=== PATIENT | female | born 1955 | race Caucasian/White ===

== ENCOUNTER 2017-06-19 15:10 | Inpatient (IN) ==
[2017-06-19] MEDS ORDERED: Acetaminophen 325 MG TABLET PO PRN (19:44)
[2017-06-19] MEDS ORDERED: Ketorolac 30 MG/ML VIAL IVP PRN (19:44)
[2017-06-19] MEDS ORDERED: Ondansetron 4 MG/2 ML VIAL IVP PRN (19:44)
[2017-06-19] MEDS ORDERED: Naloxone 0.4 MG/ML INJ IVP PRN (19:44)
[2017-06-19] MEDS ORDERED: 0.9 % Sodium Chloride 1,000 ML IVC SCH (19:45)
--- NOTE | 2017-06-19 19:50 | Internal Med History&Physical ---
Date of Encounter: 06/19/17 Time of Encounter: 19:47 Assessment and Plan (1) Tibia/fibula fracture Current visit: No Status: Acute Left lower extremity tibial-fibular oblique fractures Not able to bear weight Keep splint, use Toradol and morphine for pain Orthopedic surgery consult Nothing by mouth after midnight due to possible surgical procedure IV fluids Omeprazole for GI prophylaxis and subcutaneous heparin for DVT prophylaxis. The patient will be admitted for observation. Full code. Time spent on this admission 40 minutes Qualifiers: Encounter type: initial encounter Fracture type: closed Laterality: left Qualified Code(s): S82.202A - Unspecified fracture of shaft of left tibia, initial encounter for closed fracture; S82.402A - Unspecified fracture of shaft of left fibula, initial encounter for closed fracture; S82.402A - Unspecified fracture of shaft of left fibula, initial encounter for closed fracture (2) Hypothyroidism Current visit: Yes Status: Acute Continue Synthroid Qualifiers: Hypothyroidism type: unspecified Qualified Code(s): E03.9 - Hypothyroidism , unspecified (3) Vitamin D deficiency Current visit: Yes Status: Acute (4) Leukocytosis Current visit: Yes Status: Acute Qualifiers: Leukocytosis type: unspecified Qualified Code(s): D72.829 - Elevated white blood cell count, unspecified (5) Hypertension Current visit: Yes Status: Acute Accelerated hypertension likely secondary to pain Order hydralazine as needed and pain control Qualifiers: Hypertension type: essential hypertension Qualified Code(s): I10 - Essential (primary) hypertension Internal Medicine - H&P: HPI Chief complaint: Left lower extremity pain Admitted From: Emergency Dept History of present illness: Ms. Martinez is a 61 year old female with a past medical history of vitamin D deficiency, hypothyroidism who came to the emergency room complaining left lower extremity pain after she slipped on ice and fell. X-ray showed an oblique fracture of the proximal fibular diaphysis, a distal fibular and tibial diaphyses as well. Orthopedic surgery has been consulted per ER. White blood cell count is 14 glucose 103 blood pressure 159/80. Patient says that the pain is a 7 out of 10, lower extremity appears swollen and wonders the deformity evidenced. She is neurovascular intact. Splint was placed in the left lower extremity. Past Med Surg Social Fam HX - Past Medical History Medical history: cancer (Left breast cancer status post radiation and lumpectomy ), thyroid disease (Hypothyroidism), other (Vitamin D deficiency, hypertension, sinusitis, hyperlipidemia) Psychiatric history: no psych history - Past Surgical History Surgical History: hysterectomy, other (Bladder suspension, breast surgery) - Social History Smoking Status: Never smoker Smokeless Tobacco Status: No Alcohol use: none Drug use: none - Additional Family History Additional family history: Mother with diabetes Internal Medicine - H&P: Meds Levothyroxine [Synthroid] 75 mcg PO DAILY 06/07/17 [History] 3 Allergy/AdvReac Type Severity Reaction Status Date / Time levofloxacin [From Levaquin] Allergy Hives Verified 06/19/17 12:33 All Systems PM: A 10-system review of systems was performed and is negative for pertinent findings except as documented above in the HPI. Review of systems: No chest pain shortness of breath, other systems out of the 10 review were negative, the patient did not feel dizzy or fainted - Constitutional Vitals: Temp Pulse Resp BP Pulse Ox 98.2 F 79 16 159/80 96 06/19/17 18:58 06/19/17 18:58 06/19/17 18:58 06/19/17 18:58 06/19/17 18:58 General appearance: Present: A&O X 3 - Head Head exam: Present: atraumatic, normocephalic - Eye Eye exam: Present: PERRL, conjuntiva pink, sclera anicteric Pupils: Present: PERRL - Neck Neck exam general surgery: Present: supple, trachea midline. Absent: lymphadenopathy - Respiratory Respiratory exam: Present: CTAB. Absent: accessory muscle use, rales, rhonchi, wheezes - Cardiovascular Cardiovascular exam: Present: RRR, +S1, +S2. Absent: diastolic murmur, gallop, rubs, systolic murmur - GI/Abdominal GI/Abdominal exam: Present: normal bowel sounds, soft, no peritoneal signs. Absent: distended, tenderness - Extremities Exam Extremities exam: Present: warm, radial pulses palpable and symmetrical. Absent : calf tenderness, cyanotic, pedal edema - Neurological Exam Neurological exam: Present: CN II-XII intact, oriented X3, no focal deficits. Absent: pronater drift, facial droop, speech deficit Additional comments: Left lower extremity splint in place, upper deformity evidence in the upper third of the lateral left lower extremity - Skin Skin exam: Present: dry, intact
[2017-06-19] MEDS: *HR* Morphine 2 MG/ML SYRINGE IVP PRN (20:10)
--- NOTE | 2017-06-19 20:42 | Orthopedic Consult Note ---
Date of Encounter: 06/19/17 Time of Encounter: 20:36 History of Present Illness Chief complaint: Left lower leg pain HPI: Ms. Martinez is a 61 year old female who sustained injury to her left lower extremity when she slipped on some ice outside of her home earlier today. The patient was unable to ambulate and noted deformity. She presented initially to the [facility] emergency room where x-rays taken revealed evidence of a left tibia and fibula fracture. She was transferred to [facility] for definitive orthopedic management. She denies any other injuries. Denies dizziness striking her head etc. Denies neurovascular complaints. History of physical examination was reviewed. Please see the completed portion of the medical record. Pertinent orthopedic examination this time reveals a left lower extremity in a posterior and sugar tong type splint. Neurosensory exam is intact. I reviewed x-rays of the left ankle, left tibia-fibula and left knee. These reveal a oblique type fracture of the distal third of the left tibia with an associated fibular fracture just below the level of the tibia fracture and this is associated with a specimens nondisplaced fracture of the proximal fibular metadiaphyseal region. Impression: Distal third fracture left tibia and fibula with proximal fibular fracture Recommendation: Discussed treatment options at length with the patient and family regarding this fracture. We discussed nonoperative management with the inherent risk of significant shortening or fracture malunion. This would also preclude weightbearing for an extended period of time. Surgical options would include open reduction internal fixation as well as intramedullary nailing. I recommend that we proceed with intramedullary nailing assist would be a less invasive surgical procedure and would allow her to begin weightbearing sooner. We discussed potential risks and complications including but not limited to bleeding infection blood clots nerve injury stiffness malunion nonunion as well as rotational or leg length deformities. Patient understands and agrees and is requested to proceed with surgery. She has signed informed consent for the surgical procedure. We will proceed with surgery tomorrow when operating time is available. Thank you very much for allowing me to see care form Mrs. Martinez. Sincerely, Nile Thacker,DO Past Med Surg Social Fam HX - Past Medical History Medical history: cancer (Left breast cancer status post radiation and lumpectomy ), thyroid disease (Hypothyroidism), other (Vitamin D deficiency, hypertension, sinusitis, hyperlipidemia) Psychiatric history: no psych history - Past Surgical History Surgical History: hysterectomy, other (Bladder suspension, breast surgery) - Social History Smoking Status: Never smoker Smokeless Tobacco Status: No Alcohol use: none Drug use: none - Family History Mother Living Status: Age at : 80 Cause of : pneumonia Father History Unknown: Yes Living Status: Medications and Allergies Levothyroxine [Synthroid] 75 mcg PO DAILY 06/07/17 [History] 3 Allergy/AdvReac Type Severity Reaction Status Date / Time levofloxacin [From Levaquin] Allergy Hives Verified 06/19/17 12:33 All Systems Reviewed: A 10-system review of systems was performed and is negative for pertinent findings except as documented above in the HPI. Physical Exam - Constitutional Vitals: Temp Pulse Resp BP Pulse Ox 98.2 F 79 16 159/80 96 06/19/17 18:58 06/19/17 18:58 06/19/17 18:58 06/19/17 18:58 06/19/17 18:58 Results - Labs Labs: All other labs normal. - Diagnostic results Knee x-ray: image reviewed Ankle/Foot x-ray: image reviewed (Tibia and fibula x-rays reviewed) Consult Discharge Plan - Plan Referrals: Liliane Contreras, [employer] [Primary Care Provider] -
[2017-06-20] MEDS: *HR* Morphine 2 MG/ML SYRINGE IVP PRN ×3 (00:14→18:39)
[2017-06-20 05:46] LABS: Basophils # 0.1 K/mcL (0.0-0.2); Basophils % 0.5 %; Eosinophils # 0.2 K/mcL (0.0-0.6); Eosinophils % 1.7 %; Hematocrit 36.3 % (35.3-44.9); Hemoglobin 11.6 g/dL (11.5-15.4); Immature Granulocytes % 0.3 % (0-4); Lymphocytes # 1.8 K/mcL (0.6-4.6); Lymphocytes % 19.5 %; Mean Corpuscular Hemoglobin 26.2 pg (28.0-33.3); Mean Corpuscular Volume 82.1 fL (83.0-100.0); Mean Platelet Volume 9.2 fL (9.4-12.4); Monocytes % 11.1 %; Neutrophils # 6.1 K/mcL (1.6-8.9); Platelet Count 344 K/mcL (140-400); Red Blood Count 4.42 M/mcL (3.82-4.97); Segmented Neutrophils % 66.9 %
[2017-06-20] MEDS ORDERED: *HR* Heparin 5,000 UNIT/ML VIAL SQ SCH (06:00)
[2017-06-20 06:04] LABS: BUN/Creatinine Ratio 24 (6-26); Blood Urea Nitrogen 14 mg/dL (8-23); Calcium 8.5 mg/dL (8.6-10.3); Carbon Dioxide 26 mEq/L (23-29); Chloride 108 mEq/L (98-107); Glucose 103 mg/dL (70-105); Osmolality,Calculated 289 (280-300); Potassium 3.8 mEq/L (3.5-5.1); Sodium 139 mEq/L (136-145); eGFR For African Americans > 60 (> 60); eGFR For Non-African Americans > 60 (> 60)
[2017-06-20] MEDS ORDERED: Ondansetron 4 MG/2 ML VIAL ONE (06:50)
[2017-06-20] MEDS ORDERED: Lidocaine -MPF 2% 2 ML VIAL ONE (06:50)
[2017-06-20] MEDS ORDERED: Dexamethasone 4 MG/ML VIAL ONE (06:50)
[2017-06-20] MEDS ORDERED: *HR* Succinylcholine 200 MG/10 ML VIAL IVP ONE (06:50)
[2017-06-20] MEDS ORDERED: *HR* HYDROmorphone 2 MG/ML SYRINGE ONE (06:51)
[2017-06-20] MEDS ORDERED: *HR* FentaNYL (PF) 100 MCG/2 ML VIAL ONE (06:51)
[2017-06-20] MEDS ORDERED: *HR* Midazolam HCl 2 MG/2 ML VIAL ONE (06:51)
[2017-06-20] MEDS ORDERED: *HR* Propofol 200 MG/20 ML VIAL IVP ONE (06:51)
--- NOTE | 2017-06-20 07:15 | Anesthesia Evaluation PreOp ---
Date of Encounter: 06/20/17 Time of Encounter: 07:30 - Past History Planned Operation: ORIF tibial fracture Cardiac History: Denies any Significant Hx, HTN (hypertension with pain of current injury) Pulmonary History: Denies Any Significant HX MEDICAL DEVICE SALES History: Denies Any Significant HX Other Medical History: Thyroid Anesthesia History: No Prior Anesthetic Complications, Past Anesthesia Alcohol Use: none Drug use: none Medications and Allergies Levothyroxine [Synthroid] 75 mcg PO DAILY 06/07/17 [History] 3 Allergy/AdvReac Type Severity Reaction Status Date / Time levofloxacin [From Levaquin] Allergy Hives Verified 06/19/17 12:33 - Meds/Allergy Pre-op Review Medications Reviewed: Yes Allergies Reviewed: Yes Beta Blockers on Current Med List: No Anesthesia Results - Labs 06/20/17 05:24 06/20/17 05:24 - Imaging EKG: report reviewed Anesthesia Exam Selected Entries 06/20/17 06:54 Temperature 98.1 F Pulse Rate 77 Respiratory Rate 14 Blood Pressure 145/69 O2 Sat by Pulse Oximetry 96 NPO (# of Hours): over 12 hours - HEENT Pupil (Motor): Pupils equal Mallampati: II Teeth: Normal Oral Opening: Greater than 3 - Cardiac Rhythm: Regular Murmur: None - Pulmonary Breath Sounds: bilateral Clear Respiratory Effort: Symmetrical Anesthesia Assess/Plan ASA Score: 2 Modified Boykins Scale for Level of Consciousness: Cooperative, oriented, and tranquil Anesthetic Plan: General Monitoring Plan: Standard Monitors Recovery Plan: PACU
[2017-06-20] MEDS ORDERED: *HR* Labetalol 20 MG/4 ML SYRINGE IVP PRN ×2 (07:16→10:53)
[2017-06-20] MEDS ORDERED: *HR* HYDROmorphone (PF) 1 MG/ML SYRINGE IVP PRN ×2 (07:16→10:53)
[2017-06-20] MEDS ORDERED: CeFAZolin Syr 2,000MG/20 ML 2,000 MG/20 ML SYRINGE IVPB ONE (07:45)
[2017-06-20] MEDS ORDERED: EPHEDrine 50 MG/ML VIAL ONE (08:38)
--- NOTE | 2017-06-20 10:33 | Operative Note ---
Date of procedure: 06/20/17 Pre-op diagnosis: #1. Fracture distal third left tibia #2. Segmental fracture left fibula Post-op diagnosis: same Procedure: #1. Intramedullary nailing left tibia #2. Fluoroscopic guidance for IM nailing left tibia Implants: Synthes 9 mm x 300 mm tibial nail with a 5 mm and and one proximal and one distal 4.0 mm locking screw Complications: None Anesthesia: GETA Surgeon: Nile Thacker Was there an clinic office assistant present: No Estimated blood loss (cc): 5 Tourniquet Time (Minutes): 70 Specimen: None Condition: stable Disposition: PACU Procedure in Detail: Gross findings: Preoperative examination revealed ecchymosis about the distal third of the left leg. This is associated with a large fracture bleb above the medial malleolus. This was intact. Preoperative x-rays revealed a oblique fracture of the distal third of the tibia with an associated fracture of the fibula just distal to the tibia fracture as well as a fracture through the fibular neck proximally. The fracture was able to be reduced and stabilized with a intramedullary nail placed and an antegrade position. This was locked both proximal and distal maintaining excellent fracture approximation. Fibular fracture remained in excellent position as well. Procedure: Patient was taken to the operating room and transferred from the hospital bed to the operating table. Patient was now administered general anesthesia. Once adequate level of anesthesia had been obtained the left lower extremity was prepped and draped in normal standard fashion with a tourniquet placed high about the upper thigh. Leg was now exsanguinated utilizing Esmarch and the tourniquet was inflated. Incision was created from the proximal tibia to the inferior pole the patella. Dissection was carried through subtendinous tissues down the level of the medial retinaculum which was opened immediately adjacent to the patella tendon. The extra-articular surface of the tibia was exposed. Entrance was made with the awl. Ball tip guide ragini was then placed through the entrance hole and passed down the tibia. Fracture was aligned manually and the guidewire was passed across the fracture site into the distal tibia. Length of the nail was measured and a 300 mm was selected. The tibia was reamed up to including a 10 mm reamer. The selected nail was then placed on the insertion jig passed over the guidewire and impacted down the tibia seating it below the level of the tibial surface and placing it in the very distal tibia. Alignment of the fracture was noted to be well maintained during the nail placement. Guidewire was removed. Utilizing the proximal insertion jig a single oblique medial screw was placed through the nail into the tibia. The insertion jig was now removed. Utilizing perfect circles technique a single distal locking screw was placed from the medial to lateral direction. Multipanar fluoroscopy was used to verify implant and fracture position. With implants in place now attention was paid to closure. Wound was copiously irrigated with saline solution. Medial retinaculum was closed with #1 Vicryl. Deep subtendinous tissue was closed with several #1 Vicryl. Medius subtendinous tissue were closed with multiple 2-0 undyed Vicryl patient in inverted interrupted position. Skin edges of the incision and the Wounds for the locking screws were closed with stainless steel clips. Sterile dressings consisting of bacitracin Telfa 4 x 4's sterile cast padding Darius wrap Schnapp applied and secured. Tourniquet was now deflated. Patient was then transferred from the operating room to the postanesthesia care unit in stable and satisfactory condition. All sponge and needle and instrument counts are correct. No specimens were sent for pathology.
[2017-06-20] MEDS ORDERED: Ondansetron 4 MG/2 ML VIAL IVP PRN (10:53)
[2017-06-20] MEDS ORDERED: Naloxone 0.4 MG/ML INJ IVP PRN (10:53)
[2017-06-20] MEDS ORDERED: Acetaminophen 325 MG TABLET PO PRN (10:53)
[2017-06-20] MEDS ORDERED: 0.9 % Sodium Chloride 1,000 ML IVC SCH (10:53)
[2017-06-20] MEDS: *HR* OxyCODONE Immed Rel 5 MG TABLET PO PRN (11:22)
--- NOTE | 2017-06-20 12:05 | Internal Med Progress Note ---
<Nile Santiago - Last Filed: 06/20/17 12:02> Date of Encounter: 06/20/17 Time of Encounter: 11:45 - Assessment and plan (1) Tibia/fibula fracture Current Visit: No Status: Acute Assessment and plan: Left lower extremity tibial-fibular oblique fractures Not able to bear weight Underwent surgery this morning for repair of fracture Patient back in room and comfortable at this time Tylenol, Toradol, morphine, Dilaudid or oxycodone for patient pain IV fluids to be discontinued after 2 bags Omeprazole for GI prophylaxis Subcutaneous heparin for DVT prophylaxis Qualifiers: Encounter type: initial encounter Fracture type: closed Laterality: left Qualified Code(s): S82.202A - Unspecified fracture of shaft of left tibia, initial encounter for closed fracture; S82.402A - Unspecified fracture of shaft of left fibula, initial encounter for closed fracture; S82.402A - Unspecified fracture of shaft of left fibula, initial encounter for closed fracture (2) Vitamin D deficiency Current Visit: Yes Status: Acute Assessment and plan: History of vitamin D deficiency, possibly contributory to patient tib/fib fracture (3) Hypothyroidism Current Visit: Yes Status: Acute Assessment and plan: Continue home dose Synthroid Qualifiers: Hypothyroidism type: unspecified Qualified Code(s): E03.9 - Hypothyroidism , unspecified (4) Leukocytosis Current Visit: Yes Status: Resolved Assessment and plan: Likely reactive from acute fracture No resolved We will recheck in morning Qualifiers: Leukocytosis type: unspecified Qualified Code(s): D72.829 - Elevated white blood cell count, unspecified (5) Hypertension Current Visit: Yes Status: Acute Assessment and plan: Accelerated hypertension at presentation likely secondary to pain Current blood pressure controlled Order hydralazine as needed and pain control Qualifiers: Hypertension type: essential hypertension Qualified Code(s): I10 - Essential (primary) hypertension - Subjective Interval history: Patient seen and examined at bedside this morning following her orthopedic surgery this morning for repair of her left lower extremity. Patient awake and doing well. She reports only having mild achiness in her leg but is otherwise well. - Constitutional Vitals: Temp Pulse Resp BP Pulse Ox 97.2 F L 79 16 129/69 99 06/20/17 11:50 06/20/17 11:50 06/20/17 11:50 06/20/17 11:50 06/20/17 11:50 General appearance: Present: A&O X 3 Exam: General: Cooperative, pleasant, no acute distress, alert and oriented 3, answers questions appropriately HEENT: Normocephalic, atraumatic, sclera anicteric, oral mucosa moist Respiratory: No accessory muscle usage, clear to auscultation bilaterally, no wheezes/rhonchi/rales appreciated Cardiovascular: Regular rate and rhythm, S1 and S2 present, no murmurs/rubs/ gallops/clicks appreciated GI/abdominal: Nondistended, nontender, soft, normal bowel sounds, no peritoneal signs Extremities: Patient neurovascularly intact in bilateral lower extremities, dressings in place on left lower extremity from orthopedic surgery this morning , slight amount of swelling present in left lower extremity Neurological: Alert and oriented 3, no facial droop, no focal deficits Internal Medicine: Result - Labs CBC & Chem 7: 06/20/17 05:24 06/20/17 05:24 Labs: Short CBC 06/20/17 Range/Units 05:24 WBC 9.2 (4.3-11.1) K/mcL Hgb 11.6 (11.5-15.4) g/dL Hct 36.3 (35.3-44.9) % Plt Count 344 (140-400) K/mcL Neutrophils # 6.1 (1.6-8.9) K/mcL BMP 06/20/17 05:24 Sodium 139 Potassium 3.8 Chloride 108 H Carbon Dioxide 26 BUN 14 Creatinine 0.58 L Glucose 103 Calcium 8.5 L - Impressions Impressions Tibia/Fibula X-Ray 06/20/17 08:45 IMPRESSION: 1. See above. D/ / Abdelrahman Hanna MD / Abdelrahman Hanna MD Interpreting Provider: Abdelrahman Hanna MD - VTE Documentation of Mechanical Device: Venous foot pump, device Consult Discharge Plan - Plan Referrals: Liliane Contreras, [employer] [Primary Care Provider] - <Jeffery Quick - Last Filed: 06/20/17 17:56> Date of Encounter: 06/20/17 - Assessment and plan (1) Tibia/fibula fracture Current Visit: No Status: Acute Qualifiers: Encounter type: initial encounter Fracture type: closed Laterality: left Qualified Code(s): S82.202A - Unspecified fracture of shaft of left tibia, initial encounter for closed fracture; S82.402A - Unspecified fracture of shaft of left fibula, initial encounter for closed fracture; S82.402A - Unspecified fracture of shaft of left fibula, initial encounter for closed fracture (2) Hypertension Current Visit: Yes Status: Acute Qualifiers: Hypertension type: essential hypertension Qualified Code(s): I10 - Essential (primary) hypertension (3) Hypothyroidism Current Visit: Yes Status: Acute Qualifiers: Hypothyroidism type: acquired Qualified Code(s): E03.9 - Hypothyroidism, unspecified (4) Vitamin D deficiency Current Visit: Yes Status: Acute - Constitutional Vitals: Temp Pulse Resp BP Pulse Ox 97.6 F 86 14 133/69 95 06/20/17 14:29 06/20/17 14:29 06/20/17 14:29 06/20/17 14:29 06/20/17 14:29 Internal Medicine: Result - Labs CBC & Chem 7: 06/20/17 05:24 06/20/17 05:24 Labs: Short CBC 06/20/17 Range/Units 05:24 WBC 9.2 (4.3-11.1) K/mcL Hgb 11.6 (11.5-15.4) g/dL Hct 36.3 (35.3-44.9) % Plt Count 344 (140-400) K/mcL Neutrophils # 6.1 (1.6-8.9) K/mcL BMP 06/20/17 05:24 Sodium 139 Potassium 3.8 Chloride 108 H Carbon Dioxide 26 BUN 14 Creatinine 0.58 L Glucose 103 Calcium 8.5 L - Impressions Impressions Tibia/Fibula X-Ray 06/20/17 08:45 IMPRESSION: 1. See above. D/ / Abdelrahman Hanna MD / Abdelrahman Hanna MD Interpreting Provider: Abdelrahman Hanna MD - Attending Attestation I examined this patient and my medical decision-making was reviewed with the Resident Physician on 06/20/17. I agree with the documented findings, disposition and treatment plan as described except to the extent set forth below. Ms Martinez is currently admitted for acute L tib/fib fracture. She is s/p ORIF. She remains moderate to high risk due to potential for worsening clinical status. Ms Martinez just returned from surgery. Her pain is controlled at this time. No fever or chills. No nausea. Exam Alert. Comfortable Mucus membranes dry Heart reg No wheeze I/P 1. Fracture L tib/fib s/p ORIF Further diagnoses and plan as above.
[2017-06-20] MEDS: Ketorolac 30 MG/ML VIAL IVP PRN ×2 (13:13→21:23)
[2017-06-20] MEDS: ceFAZolin 2,000 MG in Water for inj. (sterile) 20 ML IVP SCH (16:05)
--- NOTE | 2017-06-20 18:08 | Anesthesia Evaluation Post Op ---
Date of Encounter: 06/20/17 Time of Encounter: 10:00 - Vital Signs Vital Signs: VSS - Lungs Lungs: Clear Ascult./Percussion - Airway Airway: Non-obstructed - Cardiovascular Regular Rate - Mental Status Mental Status: Alert & Oriented, Answers Appropriately - Nausea Vomiting Nausea Vomiting: Not Present - Hydration Hydration: NPO - Discharge PostOp Status: Transfer Patient to floor
[2017-06-21] MEDS: ceFAZolin 2,000 MG in Water for inj. (sterile) 20 ML IVP SCH (00:48)
[2017-06-21] MEDS: *HR* Morphine 2 MG/ML SYRINGE IVP PRN (00:49)
[2017-06-21 03:13] LABS: Basophils % 0.3 %; Eosinophils # 0.1 K/mcL (0.0-0.6); Eosinophils % 0.8 %; Hematocrit 30.9 % (35.3-44.9); Immature Granulocytes % 0.6 % (0-4); Lymphocytes % 16.2 %; Mean Corpuscular HGB Conc 31.1 g/dL (31.6-35.5); Mean Corpuscular Hemoglobin 25.7 pg (28.0-33.3); Mean Corpuscular Volume 82.6 fL (83.0-100.0); Mean Platelet Volume 9.1 fL (9.4-12.4); Monocytes # 1.1 K/mcL (0.0-1.3); Monocytes % 9.5 %; Neutrophils # 8.7 K/mcL (1.6-8.9); Platelet Count 301 K/mcL (140-400); Red Blood Count 3.74 M/mcL (3.82-4.97); Red Cell Distribution Width 12.9 % (11.5-14.5); Segmented Neutrophils % 72.6 %
[2017-06-21 03:17] LABS: Hemoglobin 9.6 g/dL (11.5-15.4)
[2017-06-21] MEDS: *HR* Enoxaparin 30 MG/0.3 ML SYRINGE SQ SCH ×2 (06:34→16:36)
[2017-06-21] MEDS: Ketorolac 30 MG/ML VIAL IVP PRN (06:34)
--- NOTE | 2017-06-21 14:08 | Internal Med Progress Note ---
<Mike Benoit - Last Filed: 06/21/17 14:50> Date of Encounter: 06/21/17 Time of Encounter: 14:05 - Assessment and plan (1) Tibia/fibula fracture Current Visit: Yes Status: Acute Assessment and plan: Left lower extremity tibial-fibular oblique fractures POD 1 Intramedullary nailing left tibia and internal fixation PT recommends one more day of therapy pain under control tolerating diet reports not having BM in past 2 days Tylenol, Toradol, morphine, Dilaudid or oxycodone for pain control Omeprazole for GI prophylaxis conitnue regular diet. start daily colace. Qualifiers: Encounter type: initial encounter Fracture type: closed Laterality: left Qualified Code(s): S82.202A - Unspecified fracture of shaft of left tibia, initial encounter for closed fracture; S82.402D - Unspecified fracture of shaft of left fibula, subsequent encounter for closed fracture with routine healing; S82.402D - Unspecified fracture of shaft of left fibula, subsequent encounter for closed fracture with routine healing (2) Hypertension Current Visit: Yes Status: Acute Assessment and plan: controlled. before patient had fracture of left tib/fib she went to ER (jun 07) for elevated BP reviewing EMR of ER visit shows BP in 170s-150s systolics. patient was started on lisinopril 10mg outpatient will continue lisinopril Qualifiers: Hypertension type: essential hypertension Qualified Code(s): I10 - Essential (primary) hypertension (3) Hypothyroidism Current Visit: Yes Status: Acute Assessment and plan: Continue home dose Synthroid Qualifiers: Hypothyroidism type: acquired Qualified Code(s): E03.9 - Hypothyroidism, unspecified (4) Vitamin D deficiency Current Visit: Yes Status: Acute Assessment and plan: History of vitamin D deficiency possibly contributory to patient tib/fib fracture DEXA scan in 2010 WNL Will need to repeat DEXA scan outpatient recheck Vit D levels. (5) Leukocytosis Current Visit: Yes Status: Resolved Assessment and plan: 2nd to surgery will continue to monitor afebrile no signs of infection on exam. Qualifiers: Leukocytosis type: unspecified Qualified Code(s): D72.829 - Elevated white blood cell count, unspecified (6) Anemia Current Visit: Yes Status: Acute Assessment and plan: presented with hgb of 12.6 today hgb 9.6 s/p ortho procedure cbc AM hemodynamically stable. Qualifiers: Anemia type: unspecified type Qualified Code(s): D64.9 - Anemia, unspecified - Subjective Interval history: POD 1 Intramedullary nailing left tibia. Reports pain is under control. Denies chest pain, sob, abdominal pain. Reports passing gas but has no had BM. PT recommends one additional discharge. - Constitutional Vitals: Temp Pulse Resp BP Pulse Ox 98.3 F 82 14 130/68 99 06/21/17 10:35 06/21/17 10:35 06/21/17 10:35 06/21/17 10:35 06/21/17 10:35 General appearance: Present: A&O X 3 - Other Additional findings: General: Pleasant without distressanes, Heart: Regular rate and rhythm with no murmur Lungs:bilateral lower lobe wheezing Abdomen: Soft nontender, nondistended positive bowel sounds Skin: warm and dry Extremities: Absent pedal edema, left lower extremity bandage. Neusensation intact in bilateral lower extremities Vascular: Pedal and radial pulses 2 out of 4 Internal Medicine: Result - Labs CBC & Chem 7: 06/21/17 02:53 06/20/17 05:24 Labs: Short CBC 06/21/17 Range/Units 02:53 WBC 12.0 H (4.3-11.1) K/mcL Hgb 9.6 L D (11.5-15.4) g/dL Hct 30.9 L (35.3-44.9) % Plt Count 301 (140-400) K/mcL Neutrophils # 8.7 (1.6-8.9) K/mcL - VTE Documentation of Mechanical Device: Venous foot pump, device Consult Discharge Plan - Plan Referrals: Liliane Contreras, ELECTRIC CUTTER OPERATOR [Primary Care Provider] - <Jeffery Quick - Last Filed: 06/21/17 19:20> Date of Encounter: 06/21/17 - Assessment and plan (1) Tibia/fibula fracture Current Visit: Yes Status: Acute Qualifiers: Encounter type: subsequent encounter Fracture type: closed Laterality: left Qualified Code(s): S82.202D - Unspecified fracture of shaft of left tibia , subsequent encounter for closed fracture with routine healing; S82.402D - Unspecified fracture of shaft of left fibula, subsequent encounter for closed fracture with routine healing; S82.402D - Unspecified fracture of shaft of left fibula, subsequent encounter for closed fracture with routine healing (2) Hypertension Current Visit: Yes Status: Acute Qualifiers: Hypertension type: essential hypertension Qualified Code(s): I10 - Essential (primary) hypertension (3) Hypothyroidism Current Visit: Yes Status: Acute Qualifiers: Hypothyroidism type: acquired Qualified Code(s): E03.9 - Hypothyroidism, unspecified (4) Vitamin D deficiency Current Visit: Yes Status: Acute - Constitutional Vitals: Temp Pulse Resp BP Pulse Ox 98.8 F 93 14 141/70 95 06/21/17 17:37 06/21/17 16:07 06/21/17 16:07 06/21/17 16:07 06/21/17 16:07 Internal Medicine: Result - Labs CBC & Chem 7: 06/21/17 02:53 06/20/17 05:24 Labs: Short CBC 06/21/17 Range/Units 02:53 WBC 12.0 H (4.3-11.1) K/mcL Hgb 9.6 L D (11.5-15.4) g/dL Hct 30.9 L (35.3-44.9) % Plt Count 301 (140-400) K/mcL Neutrophils # 8.7 (1.6-8.9) K/mcL - Attending Attestation I examined this patient and my medical decision-making was reviewed with the Resident Physician on 06/21/17. I agree with the documented findings, disposition and treatment plan as described except to the extent set forth below. Ms Martinez is currently admitted for acute tib/fib fracture. She is s/p ORIF. She remains moderate risk due to potential for worsening clinical status. Ms Martinez feels OK. Pain is controlled. Had therapy today. She had a low grade fever - doing IS. Exam Alert Comfortable Mucus membranes dry Heart not tachy Lungs no wheeze I/P 2. L tib/fib fracture 2. HTN Further diagnoses and plan as above.
[2017-06-21] MEDS: *HR* OxyCODONE Immed Rel 5 MG TABLET PO PRN ×2 (15:28→22:37)
--- NOTE | 2017-06-21 21:13 | Orthopedics Progress Note ---
Date of Encounter: 06/21/17 Time of Encounter: 21:10 Subjective Principal diagnosis: Left tibia and fibular fractures Interval history: 06/21/2017. Patient is postop day #1 IM nailing left tibia fracture. Patient is doing quite well. Pain is well controlled. Patient is complaining of a burning sensation in the infrapatellar incision area. Denies neurovascular complaints. Signs are stable. Patient is afebrile. Hemoglobin is 9.6. Platelet count normal. Dressings are dry. Neurovascular exam is intact. Impression: POD #1 IM nailing left tibia Recommendation: Orthopedic status is stable. Continue with ambulation training , maintaining touchdown weightbearing only on the left lower extremity. Patient can actively move the knee and ankle. Can remove dressings in 48 hours and then start local wound care with peroxide and Neosporin and a dressing as needed. Patient will need follow-up with me in about 2 weeks' time. Would also recommend use of aspirin twice a day for DVT prophylaxis. Objective Vital signs: Vital Signs Temp Pulse Resp BP Pulse Ox 06/21/17 20:43 98.3 F 83 18 117/53 97 06/21/17 17:37 98.8 F 06/21/17 16:07 100.2 F H 93 14 141/70 95 06/21/17 10:35 98.3 F 82 14 130/68 99 06/21/17 07:36 98.2 F 77 15 131/61 96 06/21/17 04:35 98.3 F 76 16 138/68 94 06/21/17 00:22 98.2 F 77 16 144/71 93 Intake and Output 06/21/17 06/21/17 06/21/17 07:59 15:59 23:59 Intake Total 480 / 480 240 / 240 Output Total 200 / 200 300 / 300 Balance -200 / -200 180 / 180 240 / 240 Intake: Oral 480 / 480 240 / 240 Output: Urine 200 / 200 300 / 300 Other: Meal Lunch Dinner Percent of Meal Consumed 80% 70% Stool Size Moderate # Voids 1 2 # Bowel Movements 1 - Labs CBC & BMP: 06/21/17 02:53 06/20/17 05:24 Labs: Abnormal lab results WBC 12.0 K/mcL (4.3-11.1) H 06/21/17 02:53 RBC 3.74 M/mcL (3.82-4.97) L 06/21/17 02:53 Hgb 9.6 g/dL (11.5-15.4) L D 06/21/17 02:53 Hct 30.9 % (35.3-44.9) L 06/21/17 02:53 MCV 82.6 fL (83.0-100.0) L 06/21/17 02:53 MCH 25.7 pg (28.0-33.3) L 06/21/17 02:53 MCHC 31.1 g/dL (31.6-35.5) L 06/21/17 02:53 MPV 9.1 fL (9.4-12.4) L 06/21/17 02:53 Chloride 108 mEq/L (98-107) H 06/20/17 05:24 Creatinine 0.58 mg/dL (0.60-1.20) L 06/20/17 05:24 Calcium 8.5 mg/dL (8.6-10.3) L 06/20/17 05:24 - VTE Documentation of Mechanical Device: Venous foot pump, device Consult Discharge Plan - Plan Referrals: Liliane Contreras, SCHEDULING REPRESENTATIVE [Primary Care Provider] -
[2017-06-22] MEDS: *HR* Enoxaparin 30 MG/0.3 ML SYRINGE SQ SCH ×2 (05:25→16:41)
[2017-06-22] MEDS: *HR* OxyCODONE Immed Rel 5 MG TABLET PO PRN ×2 (05:25→23:10)
[2017-06-22 07:27] LABS: Basophils # 0.1 K/mcL (0.0-0.2); Basophils % 0.4 %; Eosinophils # 0.3 K/mcL (0.0-0.6); Hematocrit 32.1 % (35.3-44.9); Immature Granulocytes % 0.6 % (0-4); Lymphocytes % 15.4 %; Mean Corpuscular HGB Conc 31.2 g/dL (31.6-35.5); Mean Corpuscular Hemoglobin 25.4 pg (28.0-33.3); Mean Corpuscular Volume 81.7 fL (83.0-100.0); Mean Platelet Volume 9.4 fL (9.4-12.4); Monocytes # 1.2 K/mcL (0.0-1.3); Neutrophils # 9.3 K/mcL (1.6-8.9); Platelet Count 322 K/mcL (140-400); Red Blood Count 3.93 M/mcL (3.82-4.97); Red Cell Distribution Width 13.1 % (11.5-14.5); Segmented Neutrophils % 72.6 %
[2017-06-22 07:40] LABS: BUN/Creatinine Ratio 19 (6-26); Blood Urea Nitrogen 10 mg/dL (8-23); Calcium 8.3 mg/dL (8.6-10.3); Carbon Dioxide 26 mEq/L (23-29); Chloride 105 mEq/L (98-107); Glucose 103 mg/dL (70-105); Osmolality,Calculated 283 (280-300); Potassium 3.8 mEq/L (3.5-5.1); Sodium 137 mEq/L (136-145); eGFR For African Americans > 60 (> 60); eGFR For Non-African Americans > 60 (> 60)
[2017-06-22 13:23] LABS: Bilirubin,Urine Negative (Negative); Blood,Urine Negative (Negative); Clarity,Urine Clear (Clear); Color,Urine Yellow (Yellow); Glucose,Urine (UA) Normal (Normal); Ketones,Urine Negative (Negative); Leukocyte Esterase,Urine Negative (Negative); Nitrite,Urine Negative (Negative); Protein,Urine Negative (Neg-Trace); Specific Gravity,Urine 1.006 (1.010-1.025); Urobilinogen,Urine Normal (Normal)
--- NOTE | 2017-06-22 16:55 | Internal Med Progress Note ---
Date of Encounter: 06/22/17 Time of Encounter: 16:53 - Assessment and plan (1) Tibia/fibula fracture Current Visit: Yes Status: Acute Assessment and plan: Left lower extremity tibial-fibular oblique fractures POD 2 Intramedullary nailing left tibia and internal fixation pain under control tolerating diet Tylenol, Toradol, morphine, Dilaudid or oxycodone for pain control Omeprazole for GI prophylaxis Will place her on Lovenox for DVT prophylaxis Qualifiers: Encounter type: subsequent encounter Fracture type: closed Laterality: left Qualified Code(s): S82.202D - Unspecified fracture of shaft of left tibia , subsequent encounter for closed fracture with routine healing; S82.402D - Unspecified fracture of shaft of left fibula, subsequent encounter for closed fracture with routine healing; S82.402D - Unspecified fracture of shaft of left fibula, subsequent encounter for closed fracture with routine healing (2) Fever Current Visit: Yes Status: Acute Assessment and plan: Unclear etiology reviewed CXR by myself.. no source of inf Reviewed UA - benign however with her elevated WBC and low grade fever spikes will start her on empirical abx Rocephin will change her dressing in AM as per Ortho recommendations Qualifiers: Fever type: unspecified Qualified Code(s): R50.9 - Fever, unspecified (3) Hypertension Current Visit: Yes Status: Acute Assessment and plan: controlled will continue lisinopril Qualifiers: Hypertension type: essential hypertension Qualified Code(s): I10 - Essential (primary) hypertension (4) Hypothyroidism Current Visit: Yes Status: Acute Assessment and plan: Continue home dose Synthroid Qualifiers: Hypothyroidism type: acquired Qualified Code(s): E03.9 - Hypothyroidism, unspecified (5) Vitamin D deficiency Current Visit: Yes Status: Acute Assessment and plan: History of vitamin D deficiency possibly contributory to patient tib/fib fracture DEXA scan in 2010 WNL Will need to repeat DEXA scan outpatient - Subjective Interval history: Ms. Martinez is a 61 year old female with a past medical history of vitamin D deficiency, hypothyroidism who came to the emergency room complaining left lower extremity pain after she slipped on ice and fell. X-ray showed an oblique fracture of the proximal fibular diaphysis, a distal fibular and tibial diaphyses as well. She did go for Intramedullary nailing left tibia on 06/20/2016. Now she is resting comfortably, her pain is tolerable with current medication. She denied any CP . Does have some cough with no expectoration. - Constitutional Vitals: Temp Pulse Resp BP Pulse Ox 100.0 F H 85 17 126/74 98 06/22/17 16:16 06/22/17 16:16 06/22/17 16:16 06/22/17 16:16 06/22/17 16:16 General appearance: Present: A&O X 3 - Head Head exam: Present: atraumatic, normal inspection - Neck Neck exam general surgery: Present: supple - Respiratory Respiratory exam: Present: decreased breath sounds. Absent: rales, respiratory distress, rhonchi, wheezes - Cardiovascular Cardiovascular exam: Present: RRR, +S1, +S2. Absent: tachycardia - GI/Abdominal GI/Abdominal exam: Present: normal bowel sounds, soft. Absent: rebound, rigid, tenderness - Extremities Exam Extremities exam: Absent: calf tenderness, tenderness Additional comments: Dressing placed over Lt leg Able to wiggle her toes ok - Back Exam Back exam: Absent: CVA tenderness (L), CVA tenderness (R) - Psychiatric Psychiatric exam: Present: depressed Internal Medicine: Result - Labs CBC & Chem 7: 06/22/17 06:55 06/22/17 06:55 Labs: Short CBC 06/22/17 Range/Units 06:55 WBC 12.8 H (4.3-11.1) K/mcL Hgb 10.0 L (11.5-15.4) g/dL Hct 32.1 L (35.3-44.9) % Plt Count 322 (140-400) K/mcL Neutrophils # 9.3 H (1.6-8.9) K/mcL BMP 06/22/17 06:55 Sodium 137 Potassium 3.8 Chloride 105 Carbon Dioxide 26 BUN 10 Creatinine 0.52 L Glucose 103 Calcium 8.3 L Urine 06/22/17 Range/Units 13:10 Urine Color Yellow (Yellow) Urine Clarity Clear (Clear) Urine pH 7.0 (5.0-8.0) pH Units Ur Specific [place] 1.006 L (1.010-1.025) Urine Protein Negative (Neg-Trace) mg/dL Urine Glucose (UA) Normal (Normal) mg/dL - VTE Documentation of Mechanical Device: Venous foot pump, device Consult Discharge Plan - Plan Additional Instructions: You may actively move your ankle and knee. Remove dressing in 48 hours. Start local wound dressing changes of peroxide and Neosporin with a dressing as needed. Follow up with Dr. Thacker in 2 weeks. Continue to use incentive spirometer 10 times every hour. Return to ER if you notice any excessive redness, fever, chills, odor or drainage. Return to ER if you have any symptoms of blood clot or chest pain. Referrals: Liliane Contreras, EMAIL PRODUCTION CONSULTANT [Primary Care Provider] -
[2017-06-22] MEDS ORDERED: cefTRIAXone 1,000 MG in Water for inj. (sterile) 10 ML IVP SCH (18:00)
--- NOTE | 2017-06-22 19:36 | Orthopedics Progress Note ---
Date of Encounter: 06/22/17 Time of Encounter: 19:34 Subjective Principal diagnosis: Left tibia and fibular fractures Interval history: 06/21/2017. Patient is postop day #1 IM nailing left tibia fracture. Patient is doing quite well. Pain is well controlled. Patient is complaining of a burning sensation in the infrapatellar incision area. Denies neurovascular complaints. Signs are stable. Patient is afebrile. Hemoglobin is 9.6. Platelet count normal. Dressings are dry. Neurovascular exam is intact. Impression: POD #1 IM nailing left tibia Recommendation: Orthopedic status is stable. Continue with ambulation training , maintaining touchdown weightbearing only on the left lower extremity. Patient can actively move the knee and ankle. Can remove dressings in 48 hours and then start local wound care with peroxide and Neosporin and a dressing as needed. Patient will need follow-up with me in about 2 weeks' time. Would also recommend use of aspirin twice a day for DVT prophylaxis. . Patient is postop day #2 IM nailing left tibia. She is doing well overall. Pain appears to be well-controlled. No neurovascular complaints. Vital signs are stable. Vision has minimal fever of 100 degrees. Hemoglobin is stable. Platelet count is normal. White count is minimally elevated. Wounds were exposed. The proximal knee incision is healthy clean and dry. Distally for the fracture site and the distal locking screw area there is a fair amount of edema and ecchymosis. There is the presence of some intact fracture blebs with a large fracture bleb that was ruptured at the time of her surgery. Skin however is all intact. Impression: POD #2 IM nailing left tibia Recommendation: Orthopedic status is stable. Patient can have low-grade fever from the significant trauma to her left lower extremity with the blood in the tissues. Would continue to mobilize her with nonweightbearing on the left lower extremity with active range of motion exercises for her ankle and knee. Does not really require any routine incision care other than some cleaning with peroxide and applying Neosporin to the involved areas as needed. Objective Vital signs: Vital Signs Temp Pulse Resp BP Pulse Ox 06/22/17 19:06 99.9 F H 93 16 122/73 95 06/22/17 16:16 100.0 F H 85 17 126/74 98 06/22/17 11:35 99.1 F 86 17 108/67 94 06/22/17 07:30 98.9 F 81 15 116/57 94 06/22/17 04:26 99.0 F 89 17 105/68 95 06/22/17 00:30 99.2 F 95 16 113/63 95 06/21/17 20:43 98.3 F 83 18 117/53 97 Intake and Output 06/22/17 06/22/17 06/22/17 07:59 15:59 23:59 Intake Total 100 / 100 250 / 250 Balance 100 / 100 250 / 250 Intake: IV Fluids Rocephin 1,000 MG In Water for inj. (sterile) 10 ML @ 300 mls/ hr IVP QPM PAMELA Rx#:[id number] Oral 100 / 100 240 / 240 Other: Meal Dinner Percent of Meal Consumed 80% Stool Size Moderate Stool Consistency loose # Voids 1 1 # Bowel Movements 1 - Labs CBC & BMP: 06/22/17 06:55 06/22/17 06:55 Labs: Abnormal lab results WBC 12.8 K/mcL (4.3-11.1) H 06/22/17 06:55 Hgb 10.0 g/dL (11.5-15.4) L 06/22/17 06:55 Hct 32.1 % (35.3-44.9) L 06/22/17 06:55 MCV 81.7 fL (83.0-100.0) L 06/22/17 06:55 MCH 25.4 pg (28.0-33.3) L 06/22/17 06:55 MCHC 31.2 g/dL (31.6-35.5) L 06/22/17 06:55 Neutrophils # 9.3 K/mcL (1.6-8.9) H 06/22/17 06:55 Creatinine 0.52 mg/dL (0.60-1.20) L 06/22/17 06:55 Calcium 8.3 mg/dL (8.6-10.3) L 06/22/17 06:55 Ur Specific [place] 1.006 (1.010-1.025) L 06/22/17 13:10 - VTE Documentation of Mechanical Device: Venous foot pump, device Consult Discharge Plan - Plan Additional Instructions: You may actively move your ankle and knee. Remove dressing in 48 hours. Start local wound dressing changes of peroxide and Neosporin with a dressing as needed. Follow up with Dr. Thacker in 2 weeks. Continue to use incentive spirometer 10 times every hour. Return to ER if you notice any excessive redness, fever, chills, odor or drainage. Return to ER if you have any symptoms of blood clot or chest pain. Referrals: Liliane Contreras, TILE HELPER [Primary Care Provider] -
[2017-06-23] MEDS: *HR* Enoxaparin 30 MG/0.3 ML SYRINGE SQ SCH (05:10)
[2017-06-23 07:11] VITALS: BP 114/78
[2017-06-23 07:18] LABS: Basophils # 0.1 K/mcL (0.0-0.2); Basophils % 0.5 %; Eosinophils # 0.3 K/mcL (0.0-0.6); Eosinophils % 2.5 %; Hematocrit 32.8 % (35.3-44.9); Hemoglobin 10.1 g/dL (11.5-15.4); Immature Granulocytes % 0.8 % (0-4); Lymphocytes # 2.2 K/mcL (0.6-4.6); Lymphocytes % 17.8 %; Mean Corpuscular HGB Conc 30.8 g/dL (31.6-35.5); Mean Corpuscular Hemoglobin 25.3 pg (28.0-33.3); Mean Corpuscular Volume 82.2 fL (83.0-100.0); Monocytes # 1.2 K/mcL (0.0-1.3); Monocytes % 9.7 %; Neutrophils # 8.7 K/mcL (1.6-8.9); Platelet Count 346 K/mcL (140-400); Red Blood Count 3.99 M/mcL (3.82-4.97); Segmented Neutrophils % 68.7 %
--- NOTE | 2017-06-23 09:13 | Discharge Summary ---
Date of Encounter: 06/23/17 Time of Encounter: 09:01 - Discharge Diagnosis (1) Tibia/fibula fracture Priority: Primary Status: Acute Qualifiers: Encounter type: subsequent encounter Fracture type: closed Laterality: left Qualified Code(s): S82.202D - Unspecified fracture of shaft of left tibia , subsequent encounter for closed fracture with routine healing; S82.402D - Unspecified fracture of shaft of left fibula, subsequent encounter for closed fracture with routine healing; S82.402D - Unspecified fracture of shaft of left fibula, subsequent encounter for closed fracture with routine healing (2) Fever Priority: Primary Status: Acute Qualifiers: Fever type: unspecified Qualified Code(s): R50.9 - Fever, unspecified (3) Hypertension Priority: Secondary Status: Acute Qualifiers: Hypertension type: essential hypertension Qualified Code(s): I10 - Essential (primary) hypertension (4) Hypothyroidism Priority: Secondary Status: Acute Qualifiers: Hypothyroidism type: acquired Qualified Code(s): E03.9 - Hypothyroidism, unspecified (5) Vitamin D deficiency Priority: Secondary Status: Acute - Discharge Medications Prescriptions: Oxycodone HCl/Acetaminophen [Percocet 5-325 mg Tablet] 1 each PO Q6HR PRN #15 tablet PRN Reason: Pain Enoxaparin [Lovenox] 40 mg SQ DAILY #10 syr Sulfamethoxazole/Trimeth DS [Bactrim DS] 1 each PO BID 7 Days tablet Home Medications: Levothyroxine [Synthroid] 75 mcg PO DAILY 06/07/17 [History] Cetirizine HCl 10 mg PO DAILY 06/20/17 [History] Lisinopril [Zestril] 10 mg PO DAILY 06/20/17 [History] Enoxaparin [Lovenox] 40 mg SQ DAILY #10 syr 06/23/17 [Rx] Naproxen 500 mg PO BID PRN #0 06/23/17 [Rx] Oxycodone HCl/Acetaminophen [Percocet 5-325 mg Tablet] 1 each PO Q6HR PRN #15 tablet 06/23/17 [Rx] Sulfamethoxazole/Trimeth DS [Bactrim DS] 1 each PO BID 7 Days tablet 06/23/17 [ Rx] Allergies/Adverse Reactions: 3 Allergy/AdvReac Type Severity Reaction Status Date / Time levofloxacin [From Levaquin] Allergy Hives Verified 06/19/17 12:33 Date of admission: 06/21/17 19:18 Primary care physician: Liliane Contreras CNP Consults: 06/19/17 19:48 Consult to Orthopedic Surgery [CONS] Routine Consulting Provider: Nile Thacker Reason for Consult: left fibular and tibial fracture Call Completed: No 06/20/17 10:53 Consult to Occupational Therapy [CONS] Routine Comment: Evaluate, develop and implement POC Reason for Consult: adls Consult to Physical Therapy [CONS] Routine Comment: Evaluate, develop and implement POC Reason for Consult: TDWB LLE Consult to Dietitian Helper [CONS] Routine Reason for SW Consult: d/c planning - Patient Status Disposition: Home, Self-Care - Discharge Instructions Follow Up With: Liliane Contreras CNP [Primary Care Provider] - Nile Thacker, [Non-Partnered Physician] - Additional Instructions: You may actively move your ankle and knee. Remove dressing in 48 hours. Start local wound dressing changes of peroxide and Neosporin with a dressing as needed. Follow up with Dr. Thacker in 1 weeks. Continue to use incentive spirometer 10 times every hour. Return to ER if you notice any excessive redness, fever, chills, odor or drainage. Return to ER if you have any symptoms of blood clot or chest pain. - Diet and Activity Activity: as per physical therapy Diet: low salt diet Hospital course: Ms. Martinez is a 61 year old female with a past medical history of vitamin D deficiency, hypothyroidism who came to the emergency room complaining left lower extremity pain after she slipped on ice and fell. X-ray showed an oblique fracture of the proximal fibular diaphysis, a distal fibular and tibial diaphyses as well. She did go for Intra medullary nailing left tibia on 2016. Now she is resting comfortably, her pain is tolerable with current medication. Pt did develop fever T max 100.2, which could be due to possible mild cellulites of Left ankle where she had open laceration with few blisters around. Her CXR and UA are completely benign. She was started on Rocephin last night, remained afebrile since then. Pt was evaluated by Ortho, recommend to continue to mobilize her with nonweightbearing on the left lower extremity with active range of motion exercises for her ankle and knee. So we will d/c her home today in stable condition. Since she is not able to ambulate well for few days will continue her on Lovenox for DVT prophylaxis for another 10 days. - Time Spent with Patient Total time spent providing and/or coordinating discharge services: - Constitutional Vitals: Temp Pulse Resp BP Pulse Ox 98.4 F 83 16 114/78 98 06/23/17 06:44 06/23/17 06:44 06/23/17 06:44 06/23/17 06:44 06/23/17 06:44 General appearance: Present: A&O X 3 - Head Head exam: Present: atraumatic, normal inspection - Neck Neck exam general surgery: Present: supple - Respiratory Respiratory exam: Present: decreased breath sounds. Absent: rales, respiratory distress, rhonchi, wheezes - Cardiovascular Cardiovascular exam: Present: RRR, +S1, +S2. Absent: tachycardia - GI/Abdominal GI/Abdominal exam: Present: normal bowel sounds, soft. Absent: rebound, rigid, tenderness - Extremities Exam Extremities exam: Present: tenderness. Absent: calf tenderness, pedal edema Additional comments: Clean incision. 4x4 cm size laceration just above the Left medial maleolus. few blisters noticed around the ankle medially. - Back Exam Back exam: Absent: CVA tenderness (L), CVA tenderness (R) - Neurological Exam Neurological exam: Present: alert, oriented X3 - Psychiatric Psychiatric exam: Present: normal affect, normal mood - VTE Documentation of Mechanical Device: Venous foot pump, device
== END 2017-06-23 12:09 | disposition home or self-care (01) | DRG 494 ==
LOC: 3NENU → SUATTDRO 18:41
PROVIDERS: ADMIT Hospitalist; ATTEND Internal Medicine